=== PATIENT | male | born 1975 | race African-American/Black ===

== ENCOUNTER 2020-12-10 15:59 | Inpatient (IN) | payer MEDICARE, MEDICAID, SELFPAY ==
[2020-12-10] VITALS (7 sets, daily range): BP systolic 121–165; BP diastolic 70–109; PULSE 100–124; RESP 16–24; TEMP 36.6–36.9; O2SAT 94–98; BMI 32.8
--- NOTE | 2020-12-10 16:21 | ED.ALCOHOL ---
HPI - Alcohol General Chief Complaint: ETOH/Substance Use Stated Complaint: etoh, 1 gallon of vodka, incontinent of stool Time Seen by Provider: 12/10/20 16:20 History of Present Illness HPI narrative: Patient is a 45-year-old male with no significant past medical history was BIBA after his friend kicked him out of the motel room today. Apparently he drink a gal of vodka and was incontinent of feces and his friend wanted him to leave. He has no complaints, denies chest pain, shortness of breath or pain anywhere. MD complaint: alcohol intoxication Related Data Allergies Allergy/AdvReac Type Severity Reaction Status Date / Time No Known Allergies Allergy Verified 12/10/20 16:20 Review of Systems Review of Systems: Yes all other systems are reviewed and are negative [facility] Past Medical History Medical History No known health problems Social History Social History Alcohol intake: current Alcohol intake frequency: 3 or more drinks per day Alcohol type: hard liquor Smoking Status: Never smoker Use of substances other than those prescribed or required for medical reasons: No Advance Directives: No Advance Directives Information Provided: No Physical Exam Vital Signs: Vital Signs: Last Vital Signs Temp 97.9 F 12/10/20 16:20 Pulse 105 H 12/10/20 16:20 Resp 16 12/10/20 16:20 BP 148/97 H 12/10/20 16:13 Pulse Ox 97 12/10/20 16:20 Body Mass Index 32.8 Const: General: cooperative, healthy appearing, comfortable, no acute distress and well developed Orientation/consciousness: patient oriented x3 Limitations: no limitations HENMT: Head: Yes normal to inspection, Yes normocephalic and Yes atraumatic Eyes: General: appearance normal, both eyes and all related structures Neck: Neck: Yes normal visual inspection, Yes full ROM and Yes supple Resp: Effort & Inspection: normal respiratory effort and able to speak in complete sentences Auscultation: clear to auscultation bilaterally Cardio: Rate: regular rate Rhythm: regular rhythm Heart sounds: normal S1 and S2 GI: Inspection: Yes normal to inspection Palpation (GI): Soft to palpation and nontender Skin: General skin exam: no rashes or lesions noted Neuro: General: patient oriented x3 Extrem: General: Yes normal to inspection Psych: Other: Patient obviously intoxicated, however he is cooperative and pleasant. Course Course Course Narrative: 45-year-old male with no significant past medical history who as an ETOH of 295, no medical complaints, will discharge when he is sober. 6pm sign out to Jak Lincoln PA-C MDM - Alcohol Lab Data Result diagrams: 12/10/20 16:44 Labs: Lab Results 12/10/20 12/10/20 Range/Units 16:44 16:44 WBC 4.6 L (4.8-10.8) X10*3/uL RBC 5.29 (4.60-5.80) X10*6/uL Hgb 15.3 (14.0-18.0) g/dl Hct 46.3 (42-52) % MCV 87.5 (80-98) fL MCH 28.9 (27.0-33.0) pg MCHC 33.0 (31.0-36.0) g/dl RDW 12.7 (11.0-16.0) % Plt Count 329 (160-400) X10*3/uL MPV 10.4 (9.4-12.4) fL Immature Gran % (Auto) 0.4 (0.0-0.4) % Neut % (Auto) 24.8 L (45-73) % Lymph % (Auto) 63.6 H (20-40) % [place] % (Auto) 10.8 (2-11) % Eos % (Auto) 0.2 (0-4) % Baso % (Auto) 0.2 (0-2) % Lymph # (Auto) 2.9 (1.2-4.9) X10*3/uL [place] # (Auto) 0.5 (0.1-1.2) X10*3/uL Eos # (Auto) 0.0 (0.0-0.4) X10*3/uL Baso # (Auto) 0.0 (0.0-0.2) X10*3/uL Abs Immat Gran (auto) 0.02 (0.00-0.03) X10*3/uL Absolute Neuts (auto) 1.1 L (2.0-8.3) X10*3/uL Absolute Nucleated RBC 0.000 (0.0-0.012) X10*3/uL Nucleated RBC % (auto) 0.0 (0.0-0.2) /100WBC Smear Tech's Comments VERIFIED Ethyl Alcohol 295 mg/dL
[2020-12-10 16:55] LABS: Basophils Percent Auto 0.2 % (0-2); Eosinophils Percent Auto 0.2 % (0-4); Hematocrit 46.3 % (42-52); Hemoglobin 15.3 g/dl (14.0-18.0); Imm Gran Abs Auto 0.02 X10*3/uL (0.00-0.03); Imm Gran Pct Auto 0.4 % (0.0-0.4); Lymphocytes Absolute Auto 2.9 X10*3/uL (1.2-4.9); Lymphocytes Percent Auto 63.6 % (20-40); MANUAL DIFF FLAG SCAN; Mean Corpuscular Hemoglobin 28.9 pg (27.0-33.0); Mean Corpuscular Volume 87.5 fL (80-98); Mean Platelet Volume 10.4 fL (9.4-12.4); Monocytes Absolute Auto 0.5 X10*3/uL (0.1-1.2); Monocytes Percent Auto 10.8 % (2-11); Neutrophils Absolute Auto 1.1 X10*3/uL (2.0-8.3); Neutrophils Percent Auto 24.8 % (45-73); Platelet Count 329 X10*3/uL (160-400); Red Blood Count 5.29 X10*6/uL (4.60-5.80); Red Cell Distribution Width 12.7 % (11.0-16.0); SCAN SMEAR FLAG 1; White Blood Count 4.6 X10*3/uL (4.8-10.8)
[2020-12-10 17:17] LABS: Ethanol 295 mg/dL
[2020-12-10 17:31] LABS: SLIDE REVIEW VERIFIED
--- NOTE | 2020-12-10 18:43 | PC.NURSE ---
pt continues to rest in stretcher, rr even/unlabored.
--- NOTE | 2020-12-10 21:23 | ECG_ITS ---
Test Reason : TACHYCARDIA Blood Pressure : / mmHG Vent. Rate : 121 BPM Atrial Rate : 121 BPM P-R Int : 134 ms QRS Dur : 066 ms QT Int : 326 ms P-R-T Axes : 040 016 159 degrees QTc Int : 462 ms Sinus tachycardia T wave abnormality, consider lateral ischemia Abnormal ECG No previous ECGs available Referred By: Ana Ba Electronically Signed By:SARITA HAMEED MD
[2020-12-10] MEDS: LORazepam 2 MG/ML VIAL 1 MG IVPUSH (21:46)
[2020-12-10] MEDS: LORazepam 1 MG TABLET PO (21:46)
--- NOTE | 2020-12-10 21:57 | PC.NURSE ---
Pt arrives to room 18 after being in [facility] for several hours. Pt is awake and alert but ?developmentally delayed, pt at times stuttering, difficult to follow. Pt states he was detoxing from alcohol at home for some time now, pt unknown when his last drink was. Pt reports recently losing his mother, crying and tearful at this time. IV established, labs obtained, pt medicated with Ativan per Jan. Pharm called for banana bag. VSS however pt noted to be tachycardic and hypertensive. This RN discussing Phenobarb with provider, per provider plan for Phenobarb. EKG obtained earlier by electronic prepress technician. Continue to monitor.
[2020-12-10 22:28] LABS: Ammonia 40 umol/L (13-55)
[2020-12-10 22:39] LABS: Alanine Aminotransferase 114 U/L (0-40); Albumin Level 3.8 g/dL (3.5-5.0); Alkaline Phosphatase 85 U/L (39-117); Anion Gap 20 (12-20); Aspartate Amino Transferase 150 U/L (5-37); Bilirubin Direct 0.4 mg/dL (0.0-0.5); Bilirubin Total 0.9 mg/dL (0.0-1.0); Blood Urea Nitrogen 10 mg/dL (9-16); Calcium 8.8 mg/dL (8.4-10.2); Carbon Dioxide 22 mmol/L (22-29); Chloride 106 mmol/L (96-108); Creatinine Clr Calc Pharmacy 117.8; Estimated Glomerular Filt Rate > 60; Glucose Random 104 mg/dL (60-115); Lipase 57 U/L (8-78); Potassium 4.3 mmol/l (3.3-5.1); Sodium 144 mmol/L (135-145); Total Protein 7.5 g/dL (6.5-8.0)
[2020-12-10 22:41] LABS: Troponin-I High Sensitivity 40.6 ng/L (<3.5-35.0)
[2020-12-10] MEDS: PHENobarbitaL sodium 130 MG/ML VIAL 317 MG IM (22:52)
--- NOTE | 2020-12-10 23:11 | PC.NURSE ---
Pt medicated with 1st dose of IM Phenobarb by NOAH Delgadillo. Pt sleeping in bed at this time. Continue to monitor.
--- NOTE | 2020-12-10 23:36 | PC.NURSE ---
Banana bag infusing at this time. Pt remains asleep in bed, VSS. Continue to monitor.
[2020-12-11] VITALS (19 sets, daily range): BP systolic 115–177; BP diastolic 75–109; PULSE 87–164; RESP 15–25; TEMP 36.9–37.2; O2SAT 93–100
--- NOTE | 2020-12-11 | ECG_ITS ---
Test Reason : WITHDRAWAL Blood Pressure : / mmHG Vent. Rate : 106 BPM Atrial Rate : 106 BPM P-R Int : 132 ms QRS Dur : 068 ms QT Int : 376 ms P-R-T Axes : 036 017 158 degrees QTc Int : [address] & T wave abnormality, consider lateral ischemia Abnormal ECG When compared with ECG of 10-DEC-2020 21:28, No significant change was found Referred By: Danica Casper Electronically Signed By:SARITA HAMEED MD
--- NOTE | 2020-12-11 00:38 | PC.NURSE ---
histotechnologist supervisor UTO Troponin. Troponin obtained and sent by this RN. Pt requesting something to drink, provided with gingerale. VSS. Continue to monitor.
[2020-12-11 01:13] LABS: Troponin-I High Sensitivity 43.7 ng/L (<3.5-35.0)
[2020-12-11] MEDS: PHENobarbitaL sodium 130 MG/ML VIAL 238 MG IM ×2 (03:05→06:02)
--- NOTE | 2020-12-11 03:08 | PC.NURSE ---
Pt awake and alert in bed, speaking full sentences. Pt explains that he drinks alcohol frequently, states every other day since I've become homeless last May. Pt reports drinking and unknown amount of vodka and [employer] yesterday prior to being transported to the ED. Pt desperate to get in contact with his friend Jake. VSS, pt noted to be tachycardic again. Pt medicated with Phenobarb per Jan. Continue to monitor.
--- NOTE | 2020-12-11 03:22 | PC.NURSE ---
Med Rec completed at bedside with pt. Per pt, he does not take any medications at home. Pt states he is supposed to take a baby ASA a day but has no idea when he took it last.
--- NOTE | 2020-12-11 05:06 | PC.NURSE ---
Covid swab obtained and sent.
[2020-12-11 05:39] LABS: COVID-19 Test Negative (Negative)
--- NOTE | 2020-12-11 06:05 | PC.NURSE ---
Hospitalist aware of HTN and tachycardia.
--- NOTE | 2020-12-11 06:29 | PC.NURSE ---
Pt assisted OOB to the bathroom to provide urine sample. Pt ambulating with a slow but steady gait, reports feeling dizzy with ambulation, ambulating well with a one assist.
[2020-12-11] MEDS: 0.9 % Sodium Chloride 1,000 ML 999 ML IV (06:39)
--- NOTE | 2020-12-11 06:44 | PC.NURSE ---
UA obtained and sent.
[2020-12-11 07:08] LABS: Glucose Urine UA NEG (NEG); Leukocyte Esterase Urine NEG (NEG); Nitrite Urine NEG (NEG); Specific Gravity - Urine >= 1.030 (1.005-1.025); Urine Blood NEG (NEG); Urine Ketones 5 MG/DL (NEG); Urine Protein TRACE MG/DL (NEG-TRACE)
--- NOTE | 2020-12-11 07:09 | P.HPHOSP_ITS ---
History of Present Illness Date of Service: 12/11/20 Chief Complaint: Loss of consciousness, apparent seizure 45 year old homeless man with history of ETOH abuse presented after a fall at the hotel where he was staying with a friend. He stated he was had gone to the bathroom and then fell on the floor. Happened again and his friend called an ambulance as he apparently was covered in feces. Patient does not recall events during the episode, only recalls coming to in the ED here and had ETOH in his system on presentation. He does have anxiety about being here and has had tachycardia and hypertension that has escalated overnight. Was started on empiric phenobarb protocol in ED and referred for admission. Currently remains tachycardic and hypertensive. No chest pain, dyspnea, or palpitations reported. Is a bit dizzy and unsteady on his feet when ambulating to bathroom. Never had seizure before. States he drinks ETOH most days during the week. Review of Systems Constitutional: Comments: No fever, chills Eyes: Eyes: Reports no additional eye complaints ENT: Comments: No throat pain Cardiovascular: Comments: No chest pain Respiratory: Comments: No dyspnea Gastrointestinal: Comments: No abd pain, nausea, vomiting, diarrhea Genitourinary: Comments: No difficulty urinating Musculoskeletal: Musculoskeletal: Reports no additional musculoskeletal complaints Neurologic: Comments: No weakness or numbness in extremities reported Psychiatric: Comments: anxious Hematologic/Lymphatic: Comments: No bruising PMFSH Medical History (Updated 12/11/20 @ 07:20 by Bradley Heaton MD) Alcohol withdrawal HTN (hypertension) No known health problems Family history: reviewed and not pertinent Social History (Updated 12/11/20 @ 07:17 by Bradley Heaton MD) Alcohol intake: current Alcohol intake frequency: 3 or more drinks per day Alcohol type: hard liquor Smoking Status: Current some day smoker Tobacco Type: Cigar Use of substances other than those prescribed or required for medical reasons: No Advance Directives: No Advance Directives Information Provided: No Meds Allergies Allergy/AdvReac Type Severity Reaction Status Date / Time No Known Allergies Allergy Verified 12/10/20 16:20 Home Medications Medication Instructions Recorded Confirmed Type No Known Home Meds 12/11/20 12/11/20 History Physical Exam Vital Signs and Narrative: Vital Signs: Last Vital Signs Temp 99 F 12/11/20 06:00 Pulse 137 H 12/11/20 06:41 Resp 20 12/11/20 06:41 BP 158/108 H 12/11/20 06:41 Pulse Ox 95 12/11/20 06:00 Body Mass Index 32.8 Const: General: cooperative, no acute distress, alert and awake HENMT: Head: Yes normal to inspection Eyes: Other: No scleral icterus or conjunctival injections General: appearance normal, both eyes and all related structures Neck: Other: supple, no adenopathy Resp: Other: No insp crackles or exp wheezes Effort & Inspection: normal resp iratory effort and able to speak in complete sentences Cardio: Rate: tachycardic Rhythm: regular rhythm Heart sounds: S1 normal heart sound present and S2 normal heart sound present GI: Other: soft, nontender, nondistended no guarding Skin: General skin exam: no rashes or lesions noted Neuro: Other: Sensation to light touch intact in arms/legs. Strength symetric and 4+/5 bilaterally Cranial nerves: Yes CN's II-XII intact bilaterally Results Labs CBC and Chem 7: 12/10/20 16:44 12/10/20 21:47 Labs: Laboratory Results - last 24 hr 12/10/20 12/10/20 12/10/20 16:44 16:44 21:47 MCV 87.5 MCH 28.9 MCHC 33.0 RDW 12.7 Plt Count 329 MPV 10.4 Immature Gran % (Auto) 0.4 Neut % (Auto) 24.8 L Lymph % (Auto) 63.6 H [place] % (Auto) 10.8 Eos % (Auto) 0.2 Baso % (Auto) 0.2 Lymph # (Auto) 2.9 [place] # (Auto) 0.5 Eos # (Auto) 0.0 Baso # (Auto) 0.0 Abs Immat Gran (auto) 0.02 Absolute Neuts (auto) 1.1 L Absolute Nucleated RBC 0.000 Nucleated RBC % (auto) 0.0 Smear Tech's Comments VERIFIED Anion Gap 20 Estim Creat Clear Calc 117.8 Estimated GFR > 60 Random Glucose 104 Calcium 8.8 Total Bilirubin 0.9 Direct Bilirubin 0.4 AST 150 H ALT 114 H Alkaline Phosphatase 85 Ammonia Troponin I High Sens Total Protein 7.5 Albumin 3.8 Lipase 57 Ethyl Alcohol 295 COVID-19 (HYUN) COVID-19 Clin Com 12/10/20 12/10/2012/11/21 21:47 21:47 00:38 MCV MCH MCHC RDW Plt Count MPV Immature Gran % (Auto) Neut % (Auto) Lymph % (Auto) [place] % (Auto) Eos % (Auto) Baso % (Auto) Lymph # (Auto) [place] # (Auto) Eos # (Auto) Baso # (Auto) Abs Immat Gran (auto) Absolute Neuts (auto) Absolute Nucleated RBC Nucleated RBC % (auto) Smear Tech's Comments Anion Gap Estim Creat Clear Calc Estimated GFR Random Glucose Calcium Total Bilirubin Direct Bilirubin AST ALT Alkaline Phosphatase Ammonia 40 Troponin I High Sens 40.6 H 43.7 H Total Protein Albumin Lipase Ethyl Alcohol COVID-19 (HYUN) COVID-[employer] Com 12/11/20 05:06 MCV MCH MCHC RDW Plt Count MPV Immature Gran % (Auto) Neut % (Auto) Lymph % (Auto) [place] % (Auto) Eos % (Auto) Baso % (Auto) Lymph # (Auto) [place] # (Auto) Eos # (Auto) Baso # (Auto) Abs Immat Gran (auto) Absolute Neuts (auto) Absolute Nucleated RBC Nucleated RBC % (auto) Smear Tech's Comments Anion Gap Estim Creat Clear Calc Estimated GFR Random Glucose Calcium Total Bilirubin Direct Bilirubin AST ALT Alkaline Phosphatase Ammonia Troponin I High Sens Total Protein Albumin Lipase Ethyl Alcohol COVID-19 (HYUN) Negative COVID-19 Clin Com See Note Assessment and Plan (1) HTN (hypertension): Status: Acute (2) Alcohol withdrawal: Status: Acute 45 year old man presented with altered consciousness likely related to ETOH abuse/withdrawal. Description of his even seems like a seizure. ETOH withdrawal Started on phenobarb protocol. Seems anxious and is tachycardic. AST:ALT ratio suggests ETOH use. Folic acid and thiamine/multivitamin ordered. HTN/tachycardia Given high diastolic pressures and tachycardia will start low dose Atenolol. DVT proph SC Lovenox Code status Full code.
[2020-12-11 07:10] LABS: Appearance Urine HAZY; Color Urine YELLOW
[2020-12-11 07:30] LABS: Amphetamine Screen Urine Not Detected (Not Detect); Barbiturates, Urine POSITIVE (Not Detect); Benzodiazepines Screen Urine Not Detected (Not Detect); Cannabinoid Screen Urine Not Detected (Not Detect); Cocaine Screen Urine Not Detected (Not Detect); Opiate Screen Urine Not Detected (Not Detect); Phencyclidine Screen Urine Not Detected (Not Detect)
[2020-12-11] MEDS: Enoxaparin Sodium 40 MG/0.4 ML SYRINGE SUBCUT ×2 (07:42→20:23)
[2020-12-11] MEDS: PHENobarbitaL 15 MG TABLET 45 MG PO ×2 (07:43→20:25)
[2020-12-11] MEDS: atenoloL 25 MG TABLET PO (07:43)
--- NOTE | 2020-12-11 07:50 | PC.NURSE ---
report taken from Soo ZAMORA. pt seen by hospitalist. per dr giordano ok to given phenobarb po and atenolol now, scheduled due at 900, was administered to pt. pt awake and alert. awarof plan for admission. sinus nyla on tele, 130 bpm at this time. awaiting bed assignment for admission.
[2020-12-11] MEDS: 0.9 % Sodium Chloride 1,000 ML 100 ML IVCONT ×2 (07:53→16:53)
[2020-12-11] MEDS: Folic Acid 1 MG TABLET PO (11:06)
[2020-12-11] MEDS: Thiamine HCL 100 MG TABLET PO (11:06)
[2020-12-11] MEDS: Multivitamin TABLET 1 TAB PO (11:06)
--- NOTE | 2020-12-11 16:29 | PC.NURSE ---
pt Bp elevated. dr son notified, stated he will roder labetolol, will administer when ordered.
--- NOTE | 2020-12-11 16:40 | PM.EVENT ---
Event Note Date of Service: 12/12/20 Event Note: Patient seen by hospitalist team this morning Admitted for alcohol withdrawal Patient denies any chest pain or shortness of breath or abdominal pain or fever chills. Physical exam: Cvs: rrr, [id number] , no murmur res: clear to auscultation ,no rhonchii or wheezing abd: no rebound or guarding ,nt, bs present. ext pulses present , no cyanosis neuro: axo3 , nonfocal. Assessment plan: 1. Alcohol withdrawal: Continue for phenobarb Elevated blood pressure: Continue atenolol will add small dose of amlodipine Elevated troponin unlcear , flat Patient denies any chest pain EKG changes more likely look like LVH Continue atenolol and further workup outpatient
[2020-12-11] MEDS: amLODIPine Besylate 2.5 MG TABLET PO (16:52)
--- NOTE | 2020-12-11 18:31 | PC.NURSE ---
pt very concerned about being thrown out on the streets when it comes time to be Dc. advised pt to request to speak with home health care social worker regarding safe dc plan. pt is currently staying at [facility] [id number] in [place] but does not think he can stay after Sunday or Sunday. has become tearful on many occasions regarding issue. will pass long to on coming nurse as well.
--- NOTE | 2020-12-11 19:38 | PC.NURSE ---
pt increadibly anxious about d/c planning. pt brought to bathroom. reportedly large bm. hr increased to 130s while walking and patient became tachypneic. patient assisted to bed. hr now 98 when resting.
--- NOTE | 2020-12-11 20:02 | MHC.RECOVSUP ---
Reason for consult o Current location: ED18 o Identified substance use concern: ETOH - - Withdrawal - - Support ? Intervention: o o o Community resources provided o Harm reduction discussion ? Plan: o o o Follow up tomorrow o o Patient to follow up with [facility] after discharge ? Additional information: I was able to speak with pt on 12/10/2020 and at the time he was not interested in speaking. today 12/11/2020 I was able to engage for a brief moment and he was not interested in conversation. I was able to leave him with recovery resource.
[2020-12-12] VITALS (10 sets, daily range): BP systolic 135–194; BP diastolic 59–118; PULSE 84–101; RESP 16–18; TEMP 36.9; O2SAT 96–100
[2020-12-12] MEDS: 0.9 % Sodium Chloride 1,000 ML 100 ML IVCONT (03:10)
[2020-12-12 05:54] LABS: Anion Gap 11 (12-20); Blood Urea Nitrogen 11 mg/dL (9-16); Calcium 8.7 mg/dL (8.4-10.2); Carbon Dioxide 26 mmol/L (22-29); Chloride 110 mmol/L (96-108); Creatinine Clr Calc Pharmacy 117.8; Estimated Glomerular Filt Rate > 60; Glucose Random 98 mg/dL (60-115); Potassium 4.1 mmol/l (3.3-5.1); Sodium 143 mmol/L (135-145)
[2020-12-12] MEDS: Enoxaparin Sodium 40 MG/0.4 ML SYRINGE SUBCUT ×2 (08:15→19:20)
[2020-12-12] MEDS: atenoloL 25 MG TABLET PO (08:16)
[2020-12-12] MEDS: Thiamine HCL 100 MG TABLET PO (08:16)
[2020-12-12] MEDS: Multivitamin TABLET 1 TAB PO (08:20)
[2020-12-12] MEDS: Folic Acid 1 MG TABLET PO (08:20)
[2020-12-12] MEDS: PHENobarbitaL 15 MG TABLET 45 MG PO ×2 (09:19→21:30)
[2020-12-12] MEDS: 0.9 % Sodium Chloride Flush 3 ML SYRINGE IVFLUSH ×3 (09:21→23:32)
[2020-12-12] MEDS: amLODIPine Besylate 10 MG TABLET PO (09:47)
--- NOTE | 2020-12-12 14:27 | P.PNIM_ITS ---
Subjective Subjective Date of Service: 12/13/20 Interval History: alcohol withdrawal, hx of cad Physical Exam Vital Signs: Vital Signs: Last Vital Signs Temp 98.4 F 12/12/20 11:14 Pulse 91 12/12/20 14:24 Resp 18 12/12/20 12:59 BP 157/93 H 12/12/20 14:24 Pulse Ox 96 12/12/20 14:24 Body Mass Index 32.8 Cvs: rrr, [id number] , no murmur res: clear to auscultation ,no rhonchii or wheezing abd: no rebound or guarding ,nt, bs present. ext pulses present , no cyanosis neuro: axo3 , nonfocal. Objective Data Current Medications Generic Name Dose Route Start Last Admin Trade Name Jose Gq PRN Reason Stop Dose Admin Acetaminophen 650 mg 12/11/20 07:06 Acetaminophen 325 Mg Tablet PO Q6H PRN Pain, Mild (Pain Scale 1-3) Amlodipine Besylate 10 mg 12/12/20 09:15 12/12/20 09:47 Amlodipine Besylate 10 Mg Tablet PO 10 mg DAILY [facility] Administration Protocol Aspirin 81 mg 12/12/20 21:00 Aspirin Enteric Coated 81 Mg Tablet. PO BEDTIME [facility] Atenolol 25 mg 12/11/20 09:00 12/12/20 08:16 Atenolol 25 Mg Tablet PO 25 mg DAILY [facility] Administration Protocol Enoxaparin Sodium 40 mg 12/11/20 07:15 12/12/20 08:15 Enoxaparin Sodium 40 Mg/0.4 Ml Syringe SUBCUT 40 mg Q12H [facility] Administration Folic Acid 1 mg 12/11/20 10:59 12/12/20 08:20 Folic Acid 1 Mg Tablet PO 1 mg DAILY [facility] Administration Medication 1 each 12/11/20 09:00 No Benzodiazepines MISCELLANE DAILY [facility] Multivitamins/Vitamin C 1 tab 12/11/20 10:59 12/12/20 08:20 Multivitamin Tablet PO 1 tab DAILY [facility] Administration Phenobarbital 45 mg 12/11/20 09:00 12/12/20 09:19 Phenobarbital 15 Mg Tablet PO 12/12/20 21:01 45 mg BID [facility] Administration Phenobarbital 30 mg 12/13/20 09:00 Phenobarbital 30 Mg Tablet PO 12/14/20 21:01 BID [facility] Phenobarbital 15 mg 12/15/20 09:00 Phenobarbital 15 Mg Tablet PO 12/16/20 09:01 DAILY [facility] Sodium Chloride 3 ml 12/11/20 08:00 12/12/20 09:21 0.9 % Sodium Chloride Flush 3 Ml Syringe IVFLUSH 3 ml QSHIFT [facility] Administration Thiamine HCl 100 mg 12/11/20 10:59 12/12/20 08:16 Thiamine Hcl 100 Mg Tablet PO 100 mg DAILY [facility] Administration Labs CBC & Chem 7: 12/10/20 16:44 12/13/20 07:05 Assessment and Plan (1) Alcohol withdrawal: Status: Acute (2) HTN (hypertension): Status: Acute Assessment and Plan: 45 year old man presented with altered consciousness likely related to ETOH abuse/withdrawal. Description of his even seems like a seizure. ETOH withdrawal Started on phenobarb protocol. Seems anxious and is tachycardic. AST:ALT ratio suggests ETOH use. Folic acid and thiamine/multivitamin ordered. HTN/tachycardia Given high diastolic pressures and tachycardia will start low dose Atenolol. DVT proph SC Lovenox
[2020-12-12] MEDS: Labetalol HCL 200 MG TABLET PO (16:59)
[2020-12-12] MEDS: Aspirin Enteric Coated 81 MG TABLET.DR PO (20:45)
[2020-12-13] VITALS (10 sets, daily range): BP systolic 132–189; BP diastolic 80–102; PULSE 85–98; RESP 18–20; TEMP 36.2–37.1; O2SAT 98–100; BMI 38.7
--- NOTE | 2020-12-13 07:21 | PC.NURSE ---
nurse to nurse given to yoli (rn). pt aware of plan of care.
--- NOTE | 2020-12-13 07:34 | PC.NURSE ---
0730 - vs 97.6temp 98 room air 92 pulse 161/100 vs reported to RN
[2020-12-13 07:53] LABS: Anion Gap 13 (12-20); Blood Urea Nitrogen 9 mg/dL (9-16); Calcium 8.6 mg/dL (8.4-10.2); Carbon Dioxide 24 mmol/L (22-29); Chloride 106 mmol/L (96-108); Creatinine Clr Calc Pharmacy 119.1; Estimated Glomerular Filt Rate > 60; Glucose Random 115 mg/dL (60-115); Potassium 3.8 mmol/l (3.3-5.1); Sodium 139 mmol/L (135-145)
[2020-12-13] MEDS: Losartan Potassium 25 MG TABLET PO (08:00)
[2020-12-13] MEDS: Folic Acid 1 MG TABLET PO (08:01)
[2020-12-13] MEDS: Labetalol HCL 200 MG TABLET PO ×3 (08:01→20:47)
[2020-12-13] MEDS: amLODIPine Besylate 10 MG TABLET PO (08:01)
[2020-12-13] MEDS: PHENobarbitaL 30 MG TABLET PO ×2 (08:01→20:47)
[2020-12-13] MEDS: Thiamine HCL 100 MG TABLET PO (08:02)
[2020-12-13] MEDS: Enoxaparin Sodium 40 MG/0.4 ML SYRINGE SUBCUT ×2 (08:02→20:47)
[2020-12-13] MEDS: Multivitamin TABLET 1 TAB PO (08:02)
[2020-12-13] MEDS: 0.9 % Sodium Chloride Flush 3 ML SYRINGE IVFLUSH ×3 (08:03→20:47)
--- NOTE | 2020-12-13 11:14 | MHC.CM.PN ---
met with pt who will need transportin if he returns to [facility] [id number] in [place] or a snf
--- NOTE | 2020-12-13 11:24 | MHC.CM.PN ---
dc plan return to [facility] [id number] in [place] [facility] ,jail list given to pt will need transportaion
--- NOTE | 2020-12-13 16:10 | P.PNIM_ITS ---
Subjective Subjective Date of Service: 12/13/20 Interval History: Alcohol withdrawal, uncontrolled hypertension Review of Systems Patient denies any chest pain or shortness of breath or abdominal pain or fever chills or nausea vomiting. Physical Exam Vital Signs: Vital Signs: Last Vital Signs Temp 98.0 F 12/13/20 15:15 Pulse 94 12/13/20 15:55 Resp 18 12/13/20 15:15 BP 165/98 H 12/13/20 15:55 Pulse Ox 98 12/13/20 15:15 Body Mass Index 38.7 Physical exam: Constitutional: Not in acute distress Cvs: rrr, [id number] , no murmur res: clear to auscultation ,no rhonchii or wheezing abd: no rebound or guarding ,nt, bs present. ext pulses present , no cyanosis neuro: axo3 , nonfocal. Objective Data Current Medications Generic Name Dose Route Start Last Admin Trade Name Freq PRN Reason Stop Dose Admin Acetaminophen 650 mg 12/11/20 07:06 Acetaminophen 325 Mg Tablet PO Q6H PRN Pain, Mild (Pain Scale 1-3) Amlodipine Besylate 10 mg 12/12/20 09:15 12/13/20 08:01 Amlodipine Besylate 10 Mg Tablet PO 10 mg DAILY [facility] Administration Protocol Aspirin 81 mg 12/12/20 21:00 12/12/20 20:45 Aspirin Enteric Coated 81 Mg Tablet.Dr PO 81 mg BEDTIME [facility] Administration Enoxaparin Sodium 40 mg 12/11/20 07:15 12/13/20 08:02 Enoxaparin Sodium 40 Mg/0.4 Ml Syringe SUBCUT 40 mg Q12H [facility] Administration Folic Acid 1 mg 12/11/20 10:59 12/13/20 08:01 Folic Acid 1 Mg Tablet PO 1 mg DAILY [facility] Administration Labetalol HCl 200 mg 12/12/20 21:00 12/13/20 15:55 Labetalol Hcl 200 Mg Tablet PO 200 mg TID [facility] Administration Protocol Losartan Potassium 25 mg 12/13/20 09:00 12/13/20 08:00 Losartan Potassium 25 Mg Tablet PO 25 mg DAILY [facility] Administration Protocol Medication 1 each 12/11/20 09:00 No Benzodiazepines MISCELLANE DAILY [facility] Multivitamins/Vitamin C 1 tab 12/11/20 10:59 12/13/20 08:02 Multivitamin Tablet PO 1 tab DAILY [facility] Administration Phenobarbital 30 mg 12/13/20 09:00 12/13/20 08:01 Phenobarbital 30 Mg Tablet PO 12/14/20 21:01 30 mg BID [facility] Administration Phenobarbital 15 mg 12/15/20 09:00 Phenobarbital 15 Mg Tablet PO 12/16/20 09:01 DAILY [facility] Sodium Chloride 3 ml 12/11/20 08:00 12/13/20 15:57 0.9 % Sodium Chloride Flush 3 Ml Syringe IVFLUSH 3 ml QSHIFT [facility] Administration Thiamine HCl 100 mg 12/11/20 10:59 12/13/20 08:02 Thiamine Hcl 100 Mg Tablet PO 100 mg DAILY [facility] Administration Labs CBC & Chem 7: 12/10/20 16:44 12/13/20 07:05 Assessment and Plan (1) Alcohol withdrawal: Status: Acute (2) HTN (hypertension): Status: Acute Assessment and Plan: 45 year old man presented with altered consciousness likely related to ETOH abuse/withdrawal. Description of his even seems like a seizure. 1.ETOH withdrawal Started on phenobarb protocol. Seems anxious . AST:ALT ratio suggests ETOH use. Folic acid and thiamine/multivitamin ordered. 2.HTN/ hx of cad added labetalol , amlodipine , also losartan. DVT proph SC Lovenox
[2020-12-13] MEDS: Aspirin Enteric Coated 81 MG TABLET.DR PO (20:47)
[2020-12-14 02:55] VITALS: BP 138/90; PULSE 90; RESP 19; TEMP 37; O2SAT 98
[2020-12-14 06:47] LABS: Anion Gap 15 (12-20); Blood Urea Nitrogen 9 mg/dL (9-16); Calcium 8.6 mg/dL (8.4-10.2); Carbon Dioxide 25 mmol/L (22-29); Chloride 104 mmol/L (96-108); Creatinine Clr Calc Pharmacy 126.5; Estimated Glomerular Filt Rate > 60; Glucose Random 94 mg/dL (60-115); Sodium 140 mmol/L (135-145)
[2020-12-14 07:57] VITALS: BP 140/90; PULSE 88; RESP 20; TEMP 37.1; O2SAT 99
[2020-12-14] MEDS: amLODIPine Besylate 10 MG TABLET PO (08:25)
[2020-12-14] MEDS: Thiamine HCL 100 MG TABLET PO (08:26)
[2020-12-14] MEDS: PHENobarbitaL 30 MG TABLET PO (08:26)
[2020-12-14] MEDS: Multivitamin TABLET 1 TAB PO (08:26)
[2020-12-14] MEDS: Losartan Potassium 25 MG TABLET PO (08:26)
[2020-12-14] MEDS: Labetalol HCL 200 MG TABLET PO ×2 (08:26→13:19)
[2020-12-14] MEDS: Folic Acid 1 MG TABLET PO (08:26)
[2020-12-14] MEDS: 0.9 % Sodium Chloride Flush 3 ML SYRINGE IVFLUSH (08:26)
[2020-12-14] MEDS: Enoxaparin Sodium 40 MG/0.4 ML SYRINGE SUBCUT (08:30)
[2020-12-14 11:07] VITALS: BP 144/100; PULSE 103; RESP 20; TEMP 36.8; O2SAT 100
[2020-12-14 12:05] VITALS: BP 152/90
--- NOTE | 2020-12-14 12:11 | MHC.CM.PN ---
pt dcd today with a pcp appt,and instructions to fill his scripts [facility] pt has a correction list and a room at [facility] till end of ,the month
--- NOTE | 2020-12-14 13:47 | MHC.CM.PN ---
ARRANGED [facility] BACK TO [facility] FOR PT
--- NOTE | 2020-12-25 16:56 | PM.DS ---
DS: Providers Provider Date of Service: 12/25/20 Date of admission: 12/11/20 07:06 Primary care physician: Unknown Physician DS: Diagnosis Discharge Diagnosis (1) Alcohol withdrawal: Status: Acute (2) HTN (hypertension): Status: Acute DS: Medications Discharge Medications Home Medications: Home Medications Medication Instructions Recorded Confirmed No Known Home Meds 12/11/20 12/11/20 Previous Rx's Medication Instructions Recorded amlodipine 10 mg PO DAILY #30 tab 12/14/20 aspirin 81 mg PO BEDTIME #30 tab 12/14/20 labetalol 200 mg PO TID #60 tab 12/14/20 losartan 50 mg PO DAILY #30 tab 12/14/20 DS: Summary Hospital Course Hospital Course: 45 year old homeless man with history of ETOH abuse presented after a fall at the hotel where he was staying with a friend. He stated he was had gone to the bathroom and then fell on the floor. Happened again and his friend called an ambulance as he apparently was covered in feces. Patient does not recall events during the episode, only recalls coming to in the ED here and had ETOH in his system on presentation. He does have anxiety about being here and has had tachycardia and hypertension that has escalated overnight. Was started on empiric phenobarb protocol in ED and referred for admission. Currently remains tachycardic and hypertensive. No chest pain, dyspnea, or palpitations reported. Is a bit dizzy and unsteady on his feet when ambulating to bathroom. Never had seizure before. States he drinks ETOH most days during the week. Hospital Course problem farmer section:Patient came with the alcohol withdrawal and uncontrolled blood pressure: Patient was started on phenobarb protocol alcohol withdrawal improved significantly. Blood pressure farmer patient was started on labetalol and subsequently added amlodipine and losartan for blood pressure control. Patient was given 1 month supply of the medications. patient is to follow-up with [facility] for further supply of medication as well as to get doctor appointment. 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 Further management out patiently with pcp. Mild elevated lft's probable elevated sec to etoh use -please moniter with pcp outpatiently Above management discussed with the patient in detail length he understand and in agreement with the above plan, time spent 50 minutes and 50% time spent on counseling. Significant findings: As above. Procedures performed: None. Treatment and response: As above. Complications: None. Time Spent with Patient Time attestation: Total time spent providing and/or coordinating discharge services: Discharge coordination time: Greater than 30 minutes Physical Exam Vital Signs: Vital Signs: Last Vital Signs Temp 98.2 F 12/14/20 11:07 Pulse 103 H 12/14/20 11:07 Resp 20 12/14/20 11:07 BP 152/90 H 12/14/20 12:05 Pulse Ox 100 12/14/20 11:07 Body Mass Index 38.7 Physical exam: Constitutional: Not in acute distress Cvs: rrr, [id number] , no murmur res: clear to auscultation ,no rhonchii or wheezing abd: no rebound or guarding ,nt, bs present. ext pulses present , no cyanosis neuro: axo3 , nonfocal. DS: Data Data Completed and Pending Completed studies during hospitalization [Text1]: Procedures Detoxification Services for Substance Abuse Treatment (12/11/20) Labs on day of discharge: Laboratory Tests 12/10/20 12/10/20 12/10/20 16:44 16:44 21:47 WBC 4.6 L RBC 5.29 Hgb 15.3 Hct 46.3 MCV 87.5 MCH 28.9 MCHC 33.0 RDW 12.7 Plt Count 329 MPV 10.4 Immature Gran % (Auto) 0.4 Neut % (Auto) 24.8 L Lymph % (Auto) 63.6 H [place] % (Auto) 10.8 Eos % (Auto) 0.2 Baso % (Auto) 0.2 Lymph # (Auto) 2.9 [place] # (Auto) 0.5 Eos # (Auto) 0.0 Baso # (Auto) 0.0 Abs Immat Gran (auto) 0.02 Absolute Neuts (auto) 1.1 L Absolute Nucleated RBC 0.000 Nucleated RBC % (auto) 0.0 Smear Tech's Comments VERIFIED Sodium 144 Potassium 4.3 Chloride 106 Carbon Dioxide 22 Anion Gap 20 BUN 10 Creatinine 0.88 Estim Creat Clear Calc 117.8 Estimated GFR > 60 Random Glucose 104 Calcium 8.8 Magnesium Total Bilirubin 0.9 Direct Bilirubin 0.4 AST 150 H ALT 114 H Alkaline Phosphatase 85 Ammonia Troponin I High Sens Total Protein 7.5 Albumin 3.8 Lipase 57 Urine Color Urine Appearance Urine pH Ur Specific Guy Urine Protein Urine Glucose (UA) Urine Ketones Urine Blood Urine Nitrite Ur Leukocyte Esterase Urine Opiates Screen Ur Barbiturates Screen Ur Phencyclidine Scrn Ur Amphetamines Screen U Benzodiazepines Scrn Urine Cocaine Screen U Marijuana (THC) Screen Ethyl Alcohol 295 COVID-19 (HYUN) COVID-19 Clin Com 12/10/20 12/10/20 12/11/20 21:47 21:47 00:38 WBC RBC Hgb Hct MCV MCH MCHC RDW Plt Count MPV Immature Gran % (Auto) Neut % (Auto) Lymph % (Auto) [place] % (Auto) Eos % (Auto) Baso % (Auto) Lymph # (Auto) [place] # (Auto) Eos # (Auto) Baso # (Auto) Abs Immat Gran (auto) Absolute Neuts (auto) Absolute Nucleated RBC Nucleated RBC % (auto) Smear Tech's Comments Sodium Potassium Chloride Carbon Dioxide Anion Gap BUN Creatinine Estim Creat Clear Calc Estimated GFR Random Glucose Calcium Magnesium Total Bilirubin Direct Bilirubin AST ALT Alkaline Phosphatase Ammonia 40 Troponin I High Sens 40.6 H 43.7 H Total Protein Albumin Lipase Urine Color Urine Appearance Urine pH Ur Specific Guy Urine Protein Urine Glucose (UA) Urine Ketones Urine Blood Urine Nitrite Ur Leukocyte Esterase Urine Opiates Screen Ur Barbiturates Screen Ur Phencyclidine Scrn Ur Amphetamines Screen U Benzodiazepines Scrn Urine Cocaine Screen U Marijuana (THC) Screen Ethyl Alcohol COVID-19 (HYNU) COVID-19 Clin Com 12/11/20 12/11/20 12/11/20 05:06 06:38 06:38 WBC RBC Hgb Hct MCV MCH MCHC RDW Plt Count MPV Immature Gran % (Auto) Neut % (Auto) Lymph % (Auto) [place] % (Auto) Eos % (Auto) Baso % (Auto) Lymph # (Auto) [place] # (Auto) Eos # (Auto) Baso # (Auto) Abs Immat Gran (auto) Absolute Neuts (auto) Absolute Nucleated RBC Nucleated RBC % (auto) Smear Tech's Comments Sodium Potassium Chloride Carbon Dioxide Anion Gap BUN Creatinine Estim Creat Clear Calc Estimated GFR Random Glucose Calcium Magnesium Total Bilirubin Direct Bilirubin AST ALT Alkaline Phosphatase Ammonia Troponin I High Sens Total Protein Albumin Lipase Urine Color YELLOW Urine Appearance HAZY Urine pH 6.0 Ur Specific Guy >= 1.030 H Urine Protein TRACE Urine Glucose (UA) NEG Urine Ketones 5 Urine Blood NEG Urine Nitrite NEG Ur Leukocyte Esterase NEG Urine Opiates Screen Not Detected Ur Barbiturates Screen POSITIVE H Ur Phencyclidine Scrn Not Detected Ur Amphetamines Screen Not Detected U Benzodiazepines Scrn Not Detected Urine Cocaine Screen Not Detected U Marijuana (THC) Screen Not Detected Ethyl Alcohol COVID-19 (HYUN) Negative COVID-19 Clin Com See Note 12/12/20 12/12/20 12/13/20 05:26 06:06 07:05 WBC RBC Hgb Hct MCV MCH MCHC RDW Plt Count MPV Immature Gran % (Auto) Neut % (Auto) Lymph % (Auto) [place] % (Auto) Eos % (Auto) Baso % (Auto) Lymph # (Auto) [place] # (Auto) Eos # (Auto) Baso # (Auto) Abs Immat Gran (auto) Absolute Neuts (auto) Absolute Nucleated RBC Nucleated RBC % (auto) Smear Tech's Comments Sodium 143 139 Potassium 4.1 3.8 Chloride 110 H 106 Carbon Dioxide 26 24 Anion Gap 11 L 13 BUN 11 9 Creatinine 0.88 0.87 Estim Creat Clear Calc 117.8 119.1 Estimated GFR > 60 > 60 Random Glucose 98 115 Calcium 8.7 8.6 Magnesium 2.0 Total Bilirubin Direct Bilirubin AST ALT Alkaline Phosphatase Ammonia Troponin I High Sens Total Protein Albumin Lipase Urine Color Urine Appearance Urine pH Ur Specific Guy Urine Protein Urine Glucose (UA) Urine Ketones Urine Blood Urine Nitrite Ur Leukocyte Esterase Urine Opiates Screen Ur Barbiturates Screen Ur Phencyclidine Scrn Ur Amphetamines Screen U Benzodiazepines Scrn Urine Cocaine Screen U Marijuana (THC) Screen Ethyl Alcohol COVID-19 (HYUN) COVID-19 Clin Com 12/14/20 05:15 WBC RBC Hgb Hct MCV MCH MCHC RDW Plt Count MPV Immature Gran % (Auto) Neut % (Auto) Lymph % (Auto) [place] % (Auto) Eos % (Auto) Baso % (Auto) Lymph # (Auto) [place] # (Auto) Eos # (Auto) Baso # (Auto) Abs Immat Gran (auto) Absolute Neuts (auto) Absolute Nucleated RBC Nucleated RBC % (auto) Smear Tech's Comments Sodium 140 Potassium 4.0 Chloride 104 Carbon Dioxide 25 Anion Gap 15 BUN 9 Creatinine 0.89 Estim Creat Clear Calc 126.5 Estimated GFR > 60 Random Glucose 94 Calcium 8.6 Magnesium Total Bilirubin Direct Bilirubin AST ALT Alkaline Phosphatase Ammonia Troponin I High Sens Total Protein Albumin Lipase Urine Color Urine Appearance Urine pH Ur Specific Guy Urine Protein Urine Glucose (UA) Urine Ketones Urine Blood Urine Nitrite Ur Leukocyte Esterase Urine Opiates Screen Ur Barbiturates Screen Ur Phencyclidine Scrn Ur Amphetamines Screen U Benzodiazepines Scrn Urine Cocaine Screen U Marijuana (THC) Screen Ethyl Alcohol COVID-19 (HYUN) COVID-19 Clin Com Discharge Plan Discharge Patient Disposition: Home, Self-Care Referrals: Viraj Jackson MD [Physician] - 1 Week (01/05/21 4:00pm Please call and reschedule if you can't keep this appointment. Please bring your insurance cards and photo id with you to appointment.) Discharge Medications: New aspirin 81 mg Tablet,Delayed Release (Dr/Ec) 81 mg PO BEDTIME Qty: 30 RF: 0 losartan 50 mg tablet 50 mg PO DAILY Qty: 30 RF: 0 labetalol 200 mg Tablet 200 mg PO TID Qty: 60 RF: 0 amlodipine 10 mg Tablet 10 mg PO DAILY Qty: 30 RF: 0 No Action No Known Home Meds RF: 0 Discharge Orders: Discharge Order (Routine); Ordered 12/14/20 Ordered By: [place] Diet: advance to usual diet, low fat, low cholesterol and low salt diet Activity on Discharge: As tolerated Visit Report Forms: Patient Portal Discharge page Care Plan Goals: Patient came with the alcohol withdrawal and uncontrolled blood pressure: Patient was started on phenobarb protocol alcohol withdrawal improved significantly. Blood pressure farmer patient was started on labetalol and subsequently added amlodipine and losartan for blood pressure control. Patient was given 1 month supply of the medications. patient is to follow-up with [facility] for further supply of medication as well as to get doctor appointment. 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 Further management out patiently. Health Concerns: As above. Plan of Treatment: As above. Discharge Date/Time: 12/14/20 14:27
== END 2020-12-14 14:27 | disposition home or self-care (01) | DRG 897 ==
LOC: HO.ED 16:42 → HO.EDOVER 12-11 22:31 → HO.IMC 12-13 05:58
PROVIDERS: Nurse Practitioner Family; Physician Assistant; Student in an Organized Health Care Education/Training Program; Admitting Provider Internal Medicine; Emergency Provider Emergency Medicine; Visit Provider Internal Medicine
DX: F10.139 Alcohol abuse with withdrawal, unspecified (principal); I10 Essential (primary) hypertension; Z59.0 Homelessness; I25.10 Atherosclerotic heart disease of native coronary artery without angina pectoris; Z20.822 Contact with and (suspected) exposure to COVID-19; Z79.82 Long term (current) use of aspirin; Z79.899 Other long term (current) drug therapy
CPT/HCPCS: 36415; 80048; 80076; 80307; 80320; 81003; 82140; 83690; 83735; 84484; 85025; 87635; 93005; 96361; 96365; 96372; 96375; 99285; J1650; J2060; J2560; J3411

== ENCOUNTER 2021-10-21 14:49 | Emergency (ER) | payer MEDICARE, SELFPAY ==
--- NOTE | ~2021-10-21 | CT_ITS ---
EXAMINATION: CT HEAD WITHOUT CONTRAST CLINICAL INFORMATION: Fall, hit head. COMPARISON: None. TECHNIQUE: Contiguous axial imaging was performed from the skull base to vertex without intravenous administration of contrast. This CT examination was performed using dose optimization techniques as appropriate, variously including the following: *Automated exposure control *Adjustment of mA and/or kV according to patient size (this includes techniques or standardized protocols for targeted exams where dose is matched to indication/reason for exam; i.e. extremities or head) *Use of iterative reconstruction technique DLP: 664 mGy-cm FINDINGS: There is no evidence of acute intracranial hemorrhage or edematous territorial infarction. There is no abnormal attenuation within the brain parenchyma. Choudhary-white matter differentiation is preserved. The ventricles are normal in size and configuration. No evidence for obstructive hydrocephalus. No abnormal mass effect or midline shift. No extra-axial fluid collections. No acute soft tissue or osseous abnormalities. The mastoid air cells and paranasal sinuses are clear. Soft tissue densities in the left external auditory canal, likely cerumen. Correlate with physical examination. CT/CT head/brain wo con IMPRESSION: No evidence of acute intracranial hemorrhage or edematous territorial infarction. Soft tissue densities in the left external auditory canal, likely cerumen. Correlate with physical examination.
--- NOTE | 2021-10-21 15:02 | ED_ITS ---
HPI - Alcohol General Chief Complaint: ETOH/Substance Use Stated Complaint: ETOH Time Seen by Provider: 10/21/21 15:02 Source: patient and EMS Mode of arrival: ambulatory Limitations: no limitations History of Present Illness HPI narrative: 46-year-old male with history of EtOH abuse, hypertension is brought here today by EMS services. [place] [address] and was stopped by police who found him being severely intoxicated. Patient is confused slurring his speech, severely intoxicated. Patient denies any injury and does not remember how much he drank. Patient reports that he lives home alone does not have any family around here. Patient has a history of alcohol withdrawal. When reading his notes from previous visit from November patient was admitted for seizure possibly from ETOH withdrawal. MD complaint: alcohol intoxication Last drink: Hours (ago) Chronic alcohol use: Yes Related Data Home Medications Medication Instructions Recorded Confirmed No Known Home Meds 12/11/20 12/11/20 Previous Rx's Medication Instructions Recorded amlodipine 10 mg tablet 10 mg PO DAILY #30 tab 12/14/20 aspirin 81 mg tablet,delayed 81 mg PO BEDTIME #30 tab 12/14/20 release labetalol 200 mg tablet 200 mg PO TID #60 tab 12/14/20 losartan 50 mg tablet 50 mg PO DAILY #30 tab 12/14/20 Allergies Allergy/AdvReac Type Severity Reaction Status Date / Time No Known Allergies Allergy Verified 12/10/20 16:20 Review of Systems Review of Systems: Constitutional : No Weight loss, No Fever, No Chills, No Night Sweats, No Fatigue, No Malaise ENT/Mouth : No Hearing loss, No Ear Pain, No Nasal Congestion, No Sinus Pain, No Hoarseness, No sore throat, No Rhinorrhea, No Swallowing Difficulty Eyes: No Eye Pain, No Swelling, No Redness, No Foreign Body, No Discharge, No Vision Changes Cardiovascular : No Chest Pain, No SOB, No Dyspnea on Exertion, No Orthopnea, No Edema, No Palpitations Respiratory : No Cough, No Sputum, No Wheezing, No Smoke Exposure, No Dyspnea Gastrointestinal : No Nausea, No Vomiting, No Diarrhea, No Constipation, No abdominal Pain, No Hematochezia, No Melena Genitourinary : no irregular bleeding, No Dysuria, No Urinary Frequency, No Hematuria, No Urinary Incontinence, No Urgency, No Flank Pain, No Urinary Flow Changes, No Hesitancy Musculoskeletal : No joint pain, No Myalgias, No Joint Swelling Skin : No Skin Lesions, No rash Neuro : No Weakness, No Numbness, No Paresthesias, No Loss of Consciousness, Dizziness, No Headache Psych : No Anxiety/Panic, No Depression, No SI/HI/AH/VH, No Social Issues, drank alcohol Yes all other systems are reviewed and are negative [facility] Past Medical History Medical History (Updated 10/21/21 @ 20:46 by Meaghan Clements [facility]) Alcohol withdrawal HTN (hypertension) No known health problems Social History Social History (Updated 12/11/20 @ 07:17 by Bradley Heaton MD) Household Members: None Housing: Homeless Do you presently have visiting nurse or other home services: No Alcohol intake: current Alcohol intake frequency: 3 or more drinks per day Alcohol type: hard liquor Advance Directives: No Advance Directives Information Provided: No service: No Physical Exam Vital Signs: Vital Signs: Last Vital Signs Temp 97.2 F 10/21/21 15:04 Pulse 96 10/21/21 16:22 Resp 16 10/21/21 16:22 BP 154/90 H 10/21/21 16:22 Pulse Ox 99 10/21/21 16:22 Body Mass Index 41.5 Const: General: cooperative, no acute distress, well developed, intoxicated appearing and other (disshaveled, ) Nutritional Appearance: obese Orientation/consciousness: oriented to person and oriented to place HENMT: Head: Yes normal to inspection, Yes normocephalic and Yes atraumatic Face and sinus: Yes normal facial exam Mouth: Normal oral and palatal mucosa present Throat: Yes posterior oropharynx normal, Yes tonsils normal and Yes uvula midline Eyes: General: appearance normal, both eyes and all related structures Neck: Neck: Yes normal visual inspection, Yes full ROM and Yes trachea midline Thyroid: Thyroid normal Resp: Effort & Inspection: normal respiratory effort, able to speak in complete sentences, no tracheal deviation and symmetric chest movement Auscultation: clear to auscultation bilaterally Cardio: Jugular venous distension: no JVD Rate: regular rate Rhythm: regular rhythm Heart sounds: S1 normal heart sound present, S2 normal heart sound present, no gallops and no murmurs GI: Inspection: Yes normal to inspection and No distended Palpation (GI): Soft to palpation, not firm, nontender and No hepatosplenomegaly present Auscultation: normal bowel sounds : General: Yes no CVA tenderness Back/Spine/Pelvis: Back: no CVA tenderness Skin: General skin exam: elasticity normal, turgor normal and dry skin Neuro: General: oriented to person and oriented to place Psych: Appearance: grossly normal Mental Status: mental status grossly normal Speech and movement: Normal speech and movement present Affect: normal affect Attitude: cooperative Thought process: Normal thought process present Thought content: Normal thought content present Insight: Good insight present (Psych) Judgement: Good judgement present (Psych) Course Course Course Narrative: 46-year-old male with history of ETOH abuse and hypertension is here today for severe alcohol intoxication. [place] [address] [place] Patient does not remember what happened and how much he drank. We will do alcohol level, patient was being changed and fell forward hitting his head on the arm rest of the recliner we will do CT scan of the head. We will do COVID test as well Reevaluation(s) Reevaluation #1: Patient will stay overnight as he is homeless. Patient is cooperative at this time. CIWA scale monitoring ordered. Patient may be discharged home when awake MDM - Alcohol Lab Data Labs: Lab Results 10/21/21 10/21/21 Range/Units 17:46 17:46 Ethyl Alcohol 247 mg/dL COVID-19 (HYUN) Negative (Negative) COVID-19 Clin Com See Note Discharge Plan Discharge Clinical Impression: Alcoholic intoxication Qualifiers: Complication of substance-induced condition: uncomplicated Qualified Code(s): F10.920 - Alcohol use, unspecified with intoxication, uncomplicated Patient Disposition: Home, Self-Care Instructions: Alcohol Intoxication (ED) Additional Instructions: You were seen here today for alcohol intoxication. Please follow-up with your PCP. Stop drinking alcohol and seek help Prescriptions: No Action No Known Home Meds RF: 0 aspirin 81 mg Tablet,Delayed Release (Dr/Ec) 81 mg PO BEDTIME Qty: 30 RF: 0 losartan 50 mg tablet 50 mg PO DAILY Qty: 30 RF: 0 labetalol 200 mg Tablet 200 mg PO TID Qty: 60 RF: 0 amlodipine 10 mg Tablet 10 mg PO DAILY Qty: 30 RF: 0
[2021-10-21 15:04] VITALS: BP 142/86; BP 178/92; PULSE 109; PULSE 115; RESP 20; TEMP 36.2; O2SAT 100; O2SAT 98; BMI 41.5
--- NOTE | 2021-10-21 15:11 | PC.NURSE ---
When patient arrived with ems, went to stand from stretcher and fell forward. Hit head on side of reclining chair. MANAGER LAN made aware. plan for CT.
[2021-10-21 16:22] VITALS: BP 154/90; PULSE 96; RESP 16; O2SAT 99
[2021-10-21 18:07] LABS: COVID-19 Test Negative (Negative); Ethanol 247 mg/dL
--- NOTE | 2021-10-21 21:41 | PC.NURSE ---
Patient resting comfortably in bed ciwa scale in place. No c/o or s/s of distress. Will continue to monitor.
--- NOTE | 2021-10-22 01:56 | PC.NURSE ---
Patient resting comfortably in bed aware of plan to discharge via taxi to [facility] [place]
== END 2021-10-22 06:34 | disposition home or self-care (01) ==
PROVIDERS: Nurse Practitioner Family; Emergency Provider Emergency Medicine
DX: F10.120 Alcohol abuse with intoxication, uncomplicated (principal); Y90.8 Blood alcohol level of 240 mg/100 ml or more; Z20.822 Contact with and (suspected) exposure to COVID-19; I10 Essential (primary) hypertension; Z91.81 History of falling
CPT/HCPCS: 36415; 70450; 82077; 87635; 99284

== ENCOUNTER 2022-03-09 21:01 | Emergency (ER) | payer OTHER, SELFPAY ==
[2022-03-09 21:10] VITALS: BP 194/116; PULSE 103; RESP 14; TEMP 37.4; O2SAT 96; BMI 29.9
--- NOTE | 2022-03-09 21:32 | ECG_ITS ---
Test Reason : HYPERTENSION Blood Pressure : / mmHG Vent. Rate : 101 BPM Atrial Rate : 101 BPM P-R Int : 160 ms QRS Dur : 082 ms QT Int : 354 ms P-R-T Axes : 031 003 147 degrees QTc Int : 459 ms Sinus tachycardia Left ventricular hypertrophy with repolarization abnormality ( R in aVL ) Cannot rule out Septal infarct , age undetermined Abnormal ECG When compared with ECG of 11-DEC-2020 00:07, Minimal criteria for Septal infarct are now Present Referred By: Danica Casper Electronically Signed By:Pipe Sanchez
--- NOTE | 2022-03-09 21:56 | ED.GENADULT ---
HPI - General Adult General Chief complaint: General Medical Stated complaint: Hypertension Time Seen by Provider: 03/09/22 21:31 Source: patient Mode of arrival: EMS History of Present Illness HPI narrative: 47-year-old male who is homeless and has a history of hypertension is brought in by EMS after they state the please department found him at the [facility] with complaints of nausea and vomiting but patient currently denies any nausea, vomiting, diarrhea or abdominal pain. Patient states that due to his homelessness he has been unable to pay for a bus pass to get to the pharmacy and car pick up driver his hypertensive medications. He otherwise states that he has had a sore throat but denies any new cough, shortness of breath/chest pain/palpitations. Related Data Home Medications Medication Instructions Recorded Confirmed No Known Home Meds 12/11/20 12/11/20 Previous Rx's Medication Instructions Recorded amlodipine 10 mg tablet 10 mg PO DAILY #30 tab 12/14/20 aspirin 81 mg tablet,delayed 81 mg PO BEDTIME #30 tab 12/14/20 release labetalol 200 mg tablet 200 mg PO TID #60 tab 12/14/20 losartan 50 mg tablet 50 mg PO DAILY #30 tab 12/14/20 Allergies Allergy/AdvReac Type Severity Reaction Status Date / Time No Known Allergies Allergy Verified 12/10/20 16:20 Review of Systems Review of Systems: Pertinent positives and negatives as stated in HPI 10 point review of systems is otherwise negative. [facility] Past Medical History Source: nursing notes reviewed Medical History Alcohol withdrawal HTN (hypertension) No known health problems Social History Social History Household Members: None Housing: Homeless Do you presently have visiting nurse or other home services: No Alcohol intake: current Alcohol intake frequency: 3 or more drinks per day Alcohol type: hard liquor Patient Tobacco Use Status: Current everyday Tobacco user Use of substances other than those prescribed or required for medical reasons: Unknown Advance Directives: No service: No Physical Exam ED Vital Signs: Vital Signs - 24 hr 03/09/22 21:10 03/09/22 22:10 03/10/22 00:35 Temperature 99.4 F Pulse Rate 103 H 101 H 96 Respiratory Rate 14 20 16 Blood Pressure 194/116 H 184/118 H 144/95 H Pulse Oximetry 96 100 95 03/10/22 03:03 03/10/22 06:04 Temperature 98.0 F Pulse Rate 97 95 Respiratory Rate 18 19 Blood Pressure 169/105 H 171/107 H Pulse Oximetry 99 100 BMI result Body Mass Index 29.9 VITAL SIGNS: Reviewed. GENERAL: Well developed, well nourished, in no acute distress. HEAD: Normocephalic/atraumatic EYES: PERRLA, EOMI EARS: Ext canals without abnormality, TMs non-bulging and non-erythematous NOSE: Nares patent bilateral OROPHARYNX: no oral lesions noted, posterior pharynx clear and non-erythematous with whitish material noted on the bilateral tonsils without enlargement and no evidence to suggest oral thrush NECK: Supple, no adenopathy LUNGS: Normal breath sounds. No adventitious sounds or accessory muscle use. SpO2<96> CARDIOVASCULAR: Regular rate and rhythm without noted murmurs, no JVD or lower extremity edema. ABDOMEN: Soft, non-tender, non-distended with bowel sounds. MUSCULOSKELETAL: No tenderness, deformities, or effusions noted on gross inspection. EXTREMITIES: No cyanosis, clubbing or edema. SKIN: Inspection of the skin reveals no rashes NEUROLOGIC: Alert and oriented x 3. Strength and sensation to light touch were grossly intact x 4. Course Course Course Narrative: 47-year-old male with history and clinical presentation consistent with hypertension without evidence of neurologic or cardiac complaints. Patient has a reported history of hypertension as well as alcohol withdrawal. Review of all investigations otherwise without acute any things other than noted intoxication and given the history of alcohol withdrawal patient was provided with 25 mg of Librium and placed on a CIWA scale. He is otherwise asymptomatic without acute complaints and is resting comfortably. Patient will be discharged in the morning. Reevaluation(s) Reevaluation #1: Patient placed in physician observation because the patient needed more time for clinical sobriety. At the time observation was started the patient's vital signs were stable, patient is alert and oriented, neuro: Nonfocal, CV RRR, lungs clear Time: 00:13 Reevaluation #2: Patient observation has ended and the plan is to discharge the patient to home. NAD, lungs clear, CV RRR, abdominal nontender, neuro intact. Disposition is for home. Of note, although patient does complain of depression he is neither suicidal nor is he homicidal and has declined offers of detox. Time: 06:33 Medical Decision Making Lab Data Result diagrams: 03/09/22 22:25 03/09/22 22:25 Labs: Lab Results 03/09/22 03/09/22 03/09/22 Range/Units 22:25 22:25 22:25 WBC 8.7 (4.8-10.8) X10*3/uL RBC 4.82 (4.60-5.80) X10*6/uL Hgb 13.0 L (14.0-18.0) g/dl Hct 40.0 L (42.0-52.0) % MCV 83.0 (80.0-98.0) fL MCH 27.0 (27.0-33.0) pg MCHC 32.5 (31.0-36.0) g/dl RDW 16.2 H (11.0-16.0) % Plt Count 351 (160-400) X10*3/uL MPV 10.2 (9.4-12.4) fL Immature Gran % (Auto) 0.2 (0.0-0.4) % Neut % (Auto) 55.0 (45-73) % Lymph % (Auto) 36.6 (20-40) % Lipscomb % (Auto) 7.7 (2-11) % Eos % (Auto) 0.2 (0-4) % Baso % (Auto) 0.3 (0-2) % Lymph # (Auto) 3.2 (1.2-4.9) X10*3/uL Lipscomb # (Auto) 0.7 (0.1-1.2) X10*3/uL Eos # (Auto) 0.0 (0.0-0.4) X10*3/uL Baso # (Auto) 0.0 (0.0-0.2) X10*3/uL Abs Immat Gran (auto) 0.02 (0.00-0.03) X10*3/uL Absolute Neuts (auto) 4.8 (2.0-8.3) x10*3/uL Absolute Nucleated RBC 0.000 (0.0-0.012) X10*3/uL Nucleated RBC % (auto) 0.0 (0.0-0.2) /100WBC Sodium 144 (135-145) mmol/L Potassium 4.3 (3.3-5.1) mmol/L Chloride 108 (96-108) mmol/L Carbon Dioxide 24 (22-29) mmol/L Anion Gap 16 (12-20) BUN 14 (9-16) mg/dL Creatinine 0.97 (0.5-1.4) mg/dL Estim Creat Clear Calc 116.5 Estimated GFR > 60 Random Glucose 124 H (60-115) mg/dL Calcium 8.8 (8.4-10.2) mg/dL Magnesium 2.4 (1.6-2.6) mg/dL Total Bilirubin 0.6 (0.0-1.0) mg/dL AST 26 D (5-37) U/L ALT 23 (0-40) U/L Alkaline Phosphatase 96 (39-117) U/L B-Natriuretic Peptide 91 (<100) pg/mL Total Protein 7.5 (6.5-8.0) g/dL Albumin 3.7 (3.5-5.0) g/dL Urine Color Urine Appearance Urine pH (5.0-8.0) Ur Specific Bullard (1.005-1.025) Urine Protein (NEG-TRACE) MG/DL Urine Glucose (UA) (NEG) MG/DL Urine Ketones (NEG) MG/DL Urine Blood (NEG) Urine Nitrite (NEG) Ur Leukocyte Esterase (NEG) Ethyl Alcohol mg/dL COVID-19 (HYUN) (Negative) COVID-19 Clin Com Influenza Type A (AMADEO) (Negative) Influenza Type B (AMADEO) (Negative) Influenza A & B Note 03/09/22 03/09/22 03/09/22 Range/Units 22:25 22:26 22:27 WBC (4.8-10.8) X10*3/uL RBC (4.60-5.80) X10*6/uL Hgb (14.0-18.0) g/dl Hct (42.0-52.0) % MCV (80.0-98.0) fL MCH (27.0-33.0) pg MCHC (31.0-36.0) g/dl RDW (11.0-16.0) % Plt Count (160-400) X10*3/uL MPV (9.4-12.4) fL Immature Gran % (Auto) (0.0-0.4) % Neut % (Auto) (45-73) % Lymph % (Auto) (20-40) % Lipscomb % (Auto) (2-11) % Eos % (Auto) (0-4) % Baso % (Auto) (0-2) % Lymph # (Auto) (1.2-4.9) X10*3/uL Lipscomb # (Auto) (0.1-1.2) X10*3/uL Eos # (Auto) (0.0-0.4) X10*3/uL Baso # (Auto) (0.0-0.2) X10*3/uL Abs Immat Gran (auto) (0.00-0.03) X10*3/uL Absolute Neuts (auto) (2.0-8.3) x10*3/uL Absolute Nucleated RBC (0.0-0.012) X10*3/uL Nucleated RBC % (auto) (0.0-0.2) /100WBC Sodium (135-145) mmol/L Potassium (3.3-5.1) mmol/L Chloride (96-108) mmol/L Carbon Dioxide (22-29) mmol/L Anion Gap (12-20) BUN (9-16) mg/dL Creatinine (0.5-1.4) mg/dL Estim Creat Clear Calc Estimated GFR Random Glucose (60-115) mg/dL Calcium (8.4-10.2) mg/dL Magnesium (1.6-2.6) mg/dL Total Bilirubin (0.0-1.0) mg/dL AST (5-37) U/L ALT (0-40) U/L Alkaline Phosphatase (39-117) U/L B-Natriuretic Peptide (<100) pg/mL Total Protein (6.5-8.0) g/dL Albumin (3.5-5.0) g/dL Urine Color Urine Appearance Urine pH (5.0-8.0) Ur Specific Bullard (1.005-1.025) Urine Protein (NEG-TRACE) MG/DL Urine Glucose (UA) (NEG) MG/DL Urine Ketones (NEG) MG/DL Urine Blood (NEG) Urine Nitrite (NEG) Ur Leukocyte Esterase (NEG) Ethyl Alcohol 299 mg/dL COVID-19 (HYUN) Negative (Negative) COVID-19 Clin Com See Note Influenza Type A (AMADEO) Negative (Negative) Influenza Type B (AMADEO) Negative (Negative) Influenza A & B Note See Note 03/10/22 Range/Units 05:24 WBC (4.8-10.8) X10*3/uL RBC (4.60-5.80) X10*6/uL Hgb (14.0-18.0) g/dl Hct (42.0-52.0) % MCV (80.0-98.0) fL MCH (27.0-33.0) pg MCHC (31.0-36.0) g/dl RDW (11.0-16.0) % Plt Count (160-400) X10*3/uL MPV (9.4-12.4) fL Immature Gran % (Auto) (0.0-0.4) % Neut % (Auto) (45-73) % Lymph % (Auto) (20-40) % Lipscomb % (Auto) (2-11) % Eos % (Auto) (0-4) % Baso % (Auto) (0-2) % Lymph # (Auto) (1.2-4.9) X10*3/uL Lipscomb # (Auto) (0.1-1.2) X10*3/uL Eos # (Auto) (0.0-0.4) X10*3/uL Baso # (Auto) (0.0-0.2) X10*3/uL Abs Immat Gran (auto) (0.00-0.03) X10*3/uL Absolute Neuts (auto) (2.0-8.3) x10*3/uL Absolute Nucleated RBC (0.0-0.012) X10*3/uL Nucleated RBC % (auto) (0.0-0.2) /100WBC Sodium (135-145) mmol/L Potassium (3.3-5.1) mmol/L Chloride (96-108) mmol/L Carbon Dioxide (22-29) mmol/L Anion Gap (12-20) BUN (9-16) mg/dL Creatinine (0.5-1.4) mg/dL Estim Creat Clear Calc Estimated GFR Random Glucose (60-115) mg/dL Calcium (8.4-10.2) mg/dL Magnesium (1.6-2.6) mg/dL Total Bilirubin (0.0-1.0) mg/dL AST (5-37) U/L ALT (0-40) U/L Alkaline Phosphatase (39-117) U/L B-Natriuretic Peptide (<100) pg/mL Total Protein (6.5-8.0) g/dL Albumin (3.5-5.0) g/dL Urine Color YELLOW Urine Appearance CLEAR Urine pH 5.5 (5.0-8.0) Ur Specific Bullard >= 1.030 H (1.005-1.025) Urine Protein NEG (NEG-TRACE) MG/DL Urine Glucose (UA) NEG (NEG) MG/DL Urine Ketones NEG (NEG) MG/DL Urine Blood NEG (NEG) Urine Nitrite NEG (NEG) Ur Leukocyte Esterase NEG (NEG) Ethyl Alcohol mg/dL COVID-19 (HYUN) (Negative) COVID-19 Clin Com Influenza Type A (AMADEO) (Negative) Influenza Type B (AMADEO) (Negative) Influenza A & B Note ECG Data Attestation: I personally reviewed and interpreted this ECG as follows: Prior ECG tracings: available for review Interpretation: Sinus tachycardia, HR-101, no STEMI but obvious LVH, ID/QRS/QTC are within normal limits. Discharge Plan Discharge Clinical Impression: HTN (hypertension), Alcohol intoxication, Alcohol use disorder, moderate, dependence Patient Disposition: Home, Self-Care Instructions: Alcohol Intoxication (ED), DASH Eating Plan (ED), Hypertension (ED), Alcohol Use Disorder (ED) Additional Instructions: It is highly recommended that you make every effort to get to a pharmacy in car pick up driver your blood pressure medication. Follow-up with your primary care provider in 2-3 days. Return to the ER for worsening symptoms. Prescriptions: No Action No Known Home Meds 0RF aspirin 81 mg Tablet,Delayed Release (Dr/Ec) 81 mg PO BEDTIME Qty: 30 0RF losartan 50 mg tablet 50 mg PO DAILY Qty: 30 0RF labetalol 200 mg Tablet 200 mg PO TID Qty: 60 0RF Protocol: Hold for SBP/HR < HOLD for SBP < : 90 HOLD for HR < : 60 amlodipine 10 mg Tablet 10 mg PO DAILY Qty: 30 0RF Protocol: Hold for SBP< HOLD for SBP < : 90
[2022-03-09 22:10] VITALS: BP 184/118; PULSE 101; RESP 20; O2SAT 100
[2022-03-09 22:31] LABS: MANUAL DIFF FLAG NO
[2022-03-09] MEDS: hydroCHLOROthiazide 25 MG TABLET PO (22:34)
[2022-03-09 22:37] LABS: Basophils Percent Auto 0.3 % (0-2); Eosinophils Percent Auto 0.2 % (0-4); Imm Gran Abs Auto 0.02 X10*3/uL (0.00-0.03); Imm Gran Pct Auto 0.2 % (0.0-0.4); Lymphocytes Absolute Auto 3.2 X10*3/uL (1.2-4.9); Lymphocytes Percent Auto 36.6 % (20-40); Mean Corpuscular HGB Conc 32.5 g/dl (31.0-36.0); Mean Platelet Volume 10.2 fL (9.4-12.4); Monocytes Absolute Auto 0.7 X10*3/uL (0.1-1.2); Monocytes Percent Auto 7.7 % (2-11); Neutrophils Absolute Auto 4.8 x10*3/uL (2.0-8.3); Platelet Count 351 X10*3/uL (160-400); Red Blood Count 4.82 X10*6/uL (4.60-5.80); Red Cell Distribution Width 16.2 % (11.0-16.0); White Blood Count 8.7 X10*3/uL (4.8-10.8)
[2022-03-09 22:50] LABS: COVID-19 Test Negative (Negative)
[2022-03-09 22:50] LABS: Ethanol 299 mg/dL
[2022-03-09 22:50] LABS: IDNOW Serial# 16C4AD1C; Influenza A Negative (Negative); Influenza B2 Negative (Negative)
[2022-03-09 22:54] LABS: Alanine Aminotransferase 23 U/L (0-40); Albumin Level 3.7 g/dL (3.5-5.0); Alkaline Phosphatase 96 U/L (39-117); Anion Gap 16 (12-20); Aspartate Amino Transferase 26 U/L (5-37); Bilirubin Total 0.6 mg/dL (0.0-1.0); Blood Urea Nitrogen 14 mg/dL (9-16); Calcium 8.8 mg/dL (8.4-10.2); Carbon Dioxide 24 mmol/L (22-29); Chloride 108 mmol/L (96-108); Creatinine Clr Calc Pharmacy 116.5; Estimated Glomerular Filt Rate > 60; Glucose Random 124 mg/dL (60-115); Magnesium 2.4 mg/dL (1.6-2.6); Potassium 4.3 mmol/L (3.3-5.1); Sodium 144 mmol/L (135-145); Total Protein 7.5 g/dL (6.5-8.0)
[2022-03-09 23:00] LABS: B Type Natriuretic Peptide 91 pg/mL (<100)
[2022-03-09] MEDS: amLODIPine Besylate 2.5 MG TABLET 7.5 MG PO (23:39)
[2022-03-09] MEDS: chlordiazePOXIDE HCl 25 MG CAPSULE PO (23:54)
[2022-03-10 00:35] VITALS: BP 144/95; PULSE 96; RESP 16; O2SAT 95
[2022-03-10] MEDS: Labetalol HCL 100 MG TABLET PO (00:35)
[2022-03-10 03:03] VITALS: BP 169/105; PULSE 97; RESP 18; O2SAT 99
[2022-03-10 05:29] LABS: Appearance Urine CLEAR; Color Urine YELLOW; Glucose Urine UA NEG (NEG); Leukocyte Esterase Urine NEG (NEG); Nitrite Urine NEG (NEG); PH 5.5 (5.0-8.0); Specific Gravity - Urine >= 1.030 (1.005-1.025); Urine Blood NEG (NEG); Urine Ketones NEG (NEG); Urine Protein NEG (NEG-TRACE)
--- NOTE | 2022-03-10 05:44 | PC.NURSE ---
I assumed nursing care of Ismael at 2300. Since that time he has been alert, sleeping but arousable to verbal stimuli. Ismael's BP was initially elevated when I first met him (see VS in EMR) and was administered PO Labetalol as well as PO Norvasc and his BP has improved (see VS in EMR). He has been resting comfortably throughout the night, makes eye contact with RN and has been calm and cooperative. He denies any chest pain, respirations spontaneous and non-labored, room air sats 90% when asleep, up to 95% with 2L nasal cannula, he speaks in full sentences, no cyanosis. Ismael is currently taking PO food and fluids at this time (0500am). Immediately prior to this he explained to me, l and tearfully, that he has been struggling with housing. he states he is homeless and recently had to leave one jail but Im really close to getting an apartment. . She attempted to explain the logistics to securing an apartment but seemed to be confused about all the details surrounding it and became increasingly frustrated as he was trying to explain it to me. He also explained that he used to live with his mother until she and she was the only person ho truly knew me or knew how to help take care of me. Pt is very tearful when describing this. Jacob WISE notified and care team radha ordered for the AM. Pt aware of this and is extremely grateful to ER staff.
[2022-03-10 06:04] VITALS: BP 171/107; PULSE 95; RESP 19; TEMP 36.7; O2SAT 100
[2022-03-10] MEDS: chlordiazePOXIDE HCl 25 MG CAPSULE PO (06:08)
[2022-03-10] MEDS: hydrALAZINE HCl 20 MG/ML VIAL 5 MG IVPUSH (06:08)
--- NOTE | 2022-03-10 06:14 | PC.NURSE ---
Ismael states he is currently attempting to secure [facility] whom, he states, will provide him with a voucher to help him obtain an apartment. He claims that he is having a lot of difficulty reaching the person who he has been instructed to contact at [facility]. He also states that he would like to be able to get to [facility] [place] on [address] [place], but he has no means of getting there.
[2022-03-10] MEDS: Acetaminophen 325 MG TABLET 975 MG PO (07:42)
[2022-03-10] MEDS: Magnesium Hydrox/Alum Hydrox 30 ML ORAL.SUSP PO (07:44)
[2022-03-10] MEDS: Lidocaine HCl Viscous 2 % 15 ML SOLUTION 10 ML MUCOUS MEM (07:44)
[2022-03-10] MEDS: Ibuprofen 400 MG TABLET PO (07:44)
== END 2022-03-10 09:12 | disposition home or self-care (01) ==
PROVIDERS: Emergency Provider Student in an Organized Health Care Education/Training Program
DX: F10.220 Alcohol dependence with intoxication, uncomplicated (principal); Y90.8 Blood alcohol level of 240 mg/100 ml or more; I10 Essential (primary) hypertension; Z20.822 Contact with and (suspected) exposure to COVID-19; J02.9 Acute pharyngitis, unspecified; F32.A Depression, unspecified; F17.200 Nicotine dependence, unspecified, uncomplicated
CPT/HCPCS: 36415; 80053; 81003; 82077; 83735; 83880; 85025; 87502; 87635; 93005; 96374; 99284; 99285